=== PATIENT | female | born 2005 | race Caucasian/White ===

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

== ENCOUNTER 2025-08-27 10:45 | Outpatient (CLI) | payer OTHER, SELFPAY ==
--- NOTE | 2025-08-27 11:00 | CRLHL7_ITS ---
For Patients: As a result of the Cures Act, medical imaging exams and procedure reports are released immediately into your electronic medical record. You may view this report before your referring provider. If you have questions, please contact your health care provider. Indication: CHRONIC SINUSITIS Technique: Performed without IV contrast Comparison: None available Findings: Frontal sinuses: Minimal mucosal thickening on the right. Ethmoid sinuses: Partial opacification of the ethmoid sinuses, mild. Maxillary sinuses: Mucosal thickening is present bilaterally. The maxillary sinus drainage pathways are obstructed on both sides. Sphenoid sinuses: Mucosal thickening is present bilaterally, including partial obstruction of the sphenoethmoidal recesses. Nasal Cavity: Slight curvature of the nasal septum is present. No jose ramon bullosa. Mild mucous cysts present. No TMJ abnormalities identified. The visualized portions of the orbits, intracranial contents and upper soft tissue neck are grossly negative. Impression: 1. Moderate bilateral maxillary sinus disease with obstruction of the sinus drainage pathways. 2. Slight curvature of the nasal septum. 3. Mild sinus disease elsewhere. Please note that all CT scans at this facility use dose modulation, iterative reconstruction, and/or weight-based dosing when appropriate to reduce radiation dose to as low as reasonably achievable. Dictated by Reji Cobos MD @ 08/27/2025 12:12:47 PM (Electronically Signed)
== END 2025-08-27 10:46 | disposition home or self-care (01) ==
LOC: CT 10:46
PROVIDERS: Visit Provider Otolaryngology
DX: J32.9 Chronic sinusitis, unspecified (principal); J32.0 Chronic maxillary sinusitis; J34.2 Deviated nasal septum
CPT/HCPCS: 70486

== ENCOUNTER 2025-08-30 09:29 | Outpatient (CLI) | payer OTHER, SELFPAY ==
--- NOTE | 2025-09-15 13:56 | P.SLS_ITS ---
Sleep Study Details Details Interpreting Provider: Steff Date of Sleep Study: 08/30/25 Sleep Study Details: STUDY TYPE:? Home unattended ? BMI:? 24.96 ORDERING PROVIDER:? Steff INDICATION:? Concern for sleep apnea ? SLEEP SUMMARY:? 484 minutes monitored RESPIRATORY SUMMARY:? AHI 3.6 Low oxygen 90 Snoring 94.5% PERIODIC LIMB MOVEMENTS OF SLEEP:? Not recorded CARDIAC:? Range 51-116, mean 66.8 beats per minute IMPRESSION:? Primary snoring. This study does not demonstrate clinically significant obstructive sleep apnea. RECOMMENDATION: If sleep disorder is strongly suspected would recommend an in- lab study.
== END 2025-08-30 09:30 | disposition home or self-care (01) ==
LOC: SLEEP 09:31
PROVIDERS: Visit Provider Otolaryngology
DX: R06.83 Snoring (principal)
CPT/HCPCS: 95806